=== PATIENT | female | born 1960 | race Caucasian/White ===

== ENCOUNTER → 2020-11-19 | Outpatient (CLI) | payer OTHER ==
[~2020-11-19] MED LIST: ANTIVERT/2525 MG PO; ASPIRIN81 MG PO; FLEXERIL10 MG PO; KLONOPIN0.5 MG PO; PREDNICOT20 MG PO; PRILOSEC20 MG PO; TRAZODONE100 MG PO; VICODIN 5/500 505 MG PO; VITAMIN B12500 MC1 MM; ZOCOR80 MG PO; ZOLOFT100 MG PO
== END | disposition home or self-care (01) ==
LOC: RAD 10:06
PROVIDERS: ATTEND Nurse Practitioner Family
DX: J43.9 Emphysema, unspecified (principal); J98.4 Other disorders of lung; J98.6 Disorders of diaphragm; F32.9 Major depressive disorder, single episode, unspecified; E78.5 Hyperlipidemia, unspecified; J30.9 Allergic rhinitis, unspecified; F17.210 Nicotine dependence, cigarettes, uncomplicated; R63.4 Abnormal weight loss; R23.9 Unspecified skin changes

== ENCOUNTER → 2020-11-26 | Outpatient (CLI) | payer OTHER | END | disposition home or self-care (01) | LOC: CT 01:31 | PROVIDERS: ATTEND Nurse Practitioner Family | DX: R91.8 Other nonspecific abnormal finding of lung field (principal); R59.0 Localized enlarged lymph nodes; R93.89 Abnormal findings on diagnostic imaging of other specified body structures ==